=== PATIENT | male | born 1960 | race Caucasian/White ===

== ENCOUNTER → 2018-09-14 | Outpatient (CLI) | payer MEDICARE ==
[~2018-09-14] MED LIST: FLOMAX0.4 MG PO; HYDROCODONE-AP1 EAC6 PO; LASIX 40 MG TAB40 M2 PO; LEFLUNOMIDE20 MG PO; LEVAQUIN 750 M750 MG PO; LISINOPRIL-HCT1 EAC2 PO; METHOTREXATE 22.5 MG PO; NAPROSYN500 MG PO; PRAVACHOL20 MG PO
--- NOTE | 2018-09-14 14:40 | 2DMMODE ---
[place] [address] 2 D/M-MODE ECHOCARDIOGRAM Name: COBY PETTIT Room: [facility]#: [id number] Admission: 09/14/18 Attend Phys: Rachel Sprague Discharge: Date of : 56 Date of Service: 09/14/18 1440 Report #: [id number] THIS REPORT FOR: //name// APPROVED REPORT Study performed: 09/14/2018 10:43:10 EXAM: Comprehensive 2D, Doppler, and color-flow Echocardiogram Patient Location: Out-Patient BSA: 2.37 HR: 80 bpm BP: 147/70 mmHg Other Information Study Quality: Good Indications Murmur 2D Dimensions IVSd: 13.28 (7-11mm) LVOT Diam: 20.42 (18-24mm) LVDd: 45.91 mm PWd: 10.64 (7-11mm) Ascending Ao: 29.46 (22-36mm) LVDs: 28.37 (25-40mm) Aortic Root: 28.46 mm Volumes Left Atrial Volume (Systole) LA ESV Index: 19.70 mL/m2 Aortic Valve AoV Peak Harsha.: 3.82 m/s AO Peak Gr.: 58.41 mmHg LVOT Max P.93 mmHg AO Mean Gr.: 36.05 mmHg LVOT Mean P.11 mmHg LVOT Max V: 0.99 m/s AO V2 VTI: 83.44 cm LVOT Mean V: 0.68 m/s MALIKA (VTI): 0.88 cm2 LVOT V1 VTI: 22.48 cm Mitral Valve E/A Ratio: 1.21 MV Decel. Time: 234.13 ms MV E Max Harsha.: 0.99 m/s MV PHT: 67.90 ms MVA (PHT): 3.24 cm2 [place] [address] 2 D/M-MODE ECHOCARDIOGRAM Name: COBY PETTIT Room: [facility]#: [id number] Admission: 09/14/18 Attend Phys: Rachel Sprague Discharge: Date of : 56 Date of Service: 09/14/18 1440 Report #: [id number] TDI E/Lateral E': 7.07 E/Medial E': 12.38 Medial E' Harsha.: 0.08 m/s Lateral E' Harsha.: 0.14 m/s Pulmonary Valve PV Peak Harsha.: 1.56 m/s PV Peak Gr.: 9.75 mmHg Tricuspid Valve RAP Estimate: 5.00 mmHg TR Peak Gr.: 25.98 mmHg RVSP: 30.98 mmHg PA Pressure: 30.98 mmHg Left Ventricle The left ventricle is normal size. There is normal LV segmental wall motion. Mild concentric left ventricular hypertrophy. Left ventricular systolic function is normal. LVEF is 55-60%. Transmitral Doppler flow pattern suggests impaired LV relaxation. Right Ventricle The right ventricle is normal size. The right ventricular systolic function is normal. Atria The left atrium size is normal. The right atrium size is normal. Aortic Valve Aortic valve is moderately calcified. Trace aortic regurgitation. Moderate to severe aortic stenosis. Mitral Valve The mitral valve is normal in structure. There is no mitral valve regurgitation noted. No evidence of mitral valve stenosis. Tricuspid Valve The tricuspid valve is normal in structure. Mild tricuspid regurgitation. No pulmonary hypertension. Pulmonic Valve The pulmonary valve is normal in structure. There is no pulmonic valvular regurgitation. Great Vessels The aortic root is normal in size. IVC is [place] [address] 2 D/M-MODE ECHOCARDIOGRAM Name: COBY PETTIT Room: [facility]#: [id number] Admission: 09/14/18 Attend Phys: Rachel Sprague Discharge: Date of : 56 Date of Service: 09/14/18 1440 Report #: [id number] collapses >50% with inspiration. Pericardium There is no pericardial effusion. <Conclusion> The left ventricle is normal size. Mild concentric left ventricular hypertrophy. Left ventricular systolic function is normal. LVEF is 55-60%. Transmitral Doppler flow pattern suggests impaired LV relaxation. Aortic valve is moderately calcified. Trace aortic regurgitation. Moderate to severe aortic stenosis. Mild tricuspid regurgitation. No pulmonary hypertension. IVC is normal in size and collapses >50% with inspiration. <ELECTRONICALLY SIGNED> By: Khris Acosta MD, FACC 09/14/18 1440 1440 1440 Khris Acosta MD, FACC /INF
== END ==
LOC: M.CRD 10:34
DX: I08.2 Rheumatic disorders of both aortic and tricuspid valves (principal)